=== PATIENT | male | born 1970 | race Caucasian/White ===

== ENCOUNTER 2016-11-05 04:14 | Inpatient (IN) ==
[2016-11-05] MEDS ORDERED: hydrOXYzine pamoate 25 MG CAPSULE PO PRN (04:52)
[2016-11-05] MEDS ORDERED: Ibuprofen 400 MG TABLET PO PRN (04:52)
[2016-11-05] MEDS ORDERED: *HR* LORazepam 2 MG/ML VIAL IM PRN (04:52)
[2016-11-05] MEDS ORDERED: Haloperidol Lactate 5 MG/ML VIAL IM PRN (04:52)
[2016-11-05] MEDS ORDERED: Mag Hydrox/Al Hydrox/Simeth 30 ML UDC PO PRN (04:52)
[2016-11-05] MEDS ORDERED: MOM Conc 10 ML UD.LIQ PO PRN (04:52)
[2016-11-05] MEDS ORDERED: traZODone 50 MG TABLET PO PRN (04:52)
[2016-11-05] MEDS ORDERED: clonazePAM 1 MG TABLET PO SCH (09:00)
--- NOTE | 2016-11-05 09:38 | Psychiatry History & Physical ---
Date of Encounter: 11/06/16 Time of Encounter: 09:31 History of Present Illness Patient Stated Chief Complaint: Suicidal Medicare Admission Attestation: For traditional Medicare patients the provided hospital inpatient services are reasonable and necessary and in the case of services not specified as inpatient -only under 42 CFR 419.22 (n), that they are appropriately provided as inpatient services in accordance 42 CFR 412.3. For Critical [facility] Hospital the patient may reasonably be expected to be discharged or transferred to a hospital within 96 hours after admission to the Critical Access Hospital. Admitted From: Emergency Dept History of Present Illness: Mr. Wahtley is a 46 year old male admitted from the emergency room for suicidal ideation. Records were available to review in the system. History information given by the indicated the patient has been treated for conversion disorder and depression. Also he was diagnosed with parkinsonian and 2015 and was started on treatment. Patient medication were changed recently from Abilify to Wellbutrin and Lexapro to Effexor. While the report patient is having hypersomnia and sleep up to 20 hours a day since August 2016. Also she stated that he had many episodes of unsteadiness and falls. She indicated that his treatment records from hospitals and neurologist can be requested for review. Past Med Surg Social Fam HX - Past Medical History Medical history: GERD, hypertension - Past Psychiatric History Psychiatric history: Reports: depression, previous psychiatric hospitalization Past psychiatric history details: [facility] for psychosis 10 years ago Family psychiatric history: Unknown Family History of Suicide: Unknown - Social History Smoking Status: Never smoker Smokeless Tobacco Status: No Alcohol use: none Drug use: none Medications & Allergies Albuterol Sulfate [Ventolin Hfa] 2 puff IH Q6H PRN 11/05/16 [History] BuPROPion XL (24 HR) [Wellbutrin XL] 150 mg PO DAILY 11/05/16 [History] Carbidopa/Levodopa 25/100 [Sinemet 25/100] 1 tab PO BID 11/05/16 [History] Entacapone [Comtan] 200 mg PO BID 11/05/16 [History] Escitalopram [Lexapro] 20 mg PO DAILY 11/05/16 [History] LORazepam [Ativan] 1 mg PO BID PRN 11/05/16 [History] Metoprolol XL (24 HR) Succ [Toprol XL] 25 mg PO DAILY 11/05/16 [History] Ondansetron HCl [Zofran] 4 mg PO TID PRN 11/05/16 [History] Ranitidine HCl [Acid Optometrist/Practice Owner] 150 mg PO BID 11/05/16 [History] Allergies No Known Allergies Allergy (Verified 11/05/16 04:39) Review of Systems Psychiatric: Reports: depression, suicidal ideation Mental Status Exam Patient orientation: Yes Person, Yes Time, Yes Place Level of alertness: Alert, Sedated Patient appearance: Disheveled, Obese Behavior: calm, cooperative, anxious, guarded, suspicious, withdrawn Psychomotor activity: Slowed Eye contact: Maintains Eye Contact Mood description: Depressed, Anxious Affect description: constricted, flat, dysphoric Speech pattern: Normal rate, Normal rhythm, Normal tone, Slowed, Delayed, Limited Speech volume: Normal Thought process: Linear, Goal Oriented, Thought Blocking Thought content: No Suicidal ideation, No Homicidal ideation, No Overt delusions Perceptual disturbances: Yes Auditory hallucinations, Yes Visual hallucinations Attention span: Unable to Focus Memory description: Grossly Intact Patient reliability: Questionable Historian Intelligence estimate: Average Judgment: Limited Insight: Partial Results - Vital Signs Vital signs: Temp Pulse Resp BP 98.2 F 77 16 139/92 11/05/16 05:01 11/05/16 05:01 11/05/16 05:01 11/05/16 05:01 Assessment and Plan (1) Major depressive disorder with psychotic features Current visit: Yes Status: Acute Plan: Admit inpatient for safety and stabilization, Close observation, Suicide Precautions per unit protocol, Encourage participation in unit milieu, Group Therapy, Monitor sleep, Monitor appetite Additional Plan: Medical records from neurology and primary care. Requested to review. No current records are available in the system. We will discontinue Lexapro and start patient on Effexor XR 75 mg. Walter reported good response to Effexor in the past. Risks, benefits, side effects, alternatives discussed w/pt: Yes Patient agreeable to treatment: Yes Qualifiers: Major depression recurrence: recurrent Active/Remission status: currently active Major depression episode severity: severe Qualified Code(s): F33.3 - Major depressive disorder, recurrent, severe with psychotic symptoms (2) Hallucination, drug-induced Current visit: Yes Status: Acute Plan: Admit inpatient for safety and stabilization, Close observation, Suicide Precautions per unit protocol, Encourage participation in unit milieu, Group Therapy, Monitor sleep, Monitor appetite Risks, benefits, side effects, alternatives discussed w/pt: Yes Patient agreeable to treatment: Yes
[2016-11-05] MEDS: Metoprolol XL (24 HR) Succ 25 MG TAB.ER.24H PO SCH (10:08)
[2016-11-05] MEDS: BuPROPion XL (24 HR) 150 MG TABLET PO SCH (10:08)
[2016-11-05] MEDS: Carbidopa/Levodopa 25/100 TABLET PO SCH ×2 (10:08→21:05)
[2016-11-05] MEDS: Venlafaxine XR (24 HR) 75 MG CAP.ER.24H PO SCH (15:45)
[2016-11-06] MEDS: Metoprolol XL (24 HR) Succ 25 MG TAB.ER.24H PO SCH (08:47)
[2016-11-06] MEDS: BuPROPion XL (24 HR) 150 MG TABLET PO SCH (08:47)
[2016-11-06] MEDS: Carbidopa/Levodopa 25/100 TABLET PO SCH ×2 (08:47→20:31)
[2016-11-06] MEDS: Venlafaxine XR (24 HR) 75 MG CAP.ER.24H PO SCH (08:48)
--- NOTE | 2016-11-06 13:24 | Psychiatry Progress Note ---
Date of Encounter: 11/06/16 Time of Encounter: 13:15 Subjective Interval history: Patient is seen for follow-up. Nursing staff report he is spending most of the time in his room. He reports improved energy and he were to get up in the morning, have breakfast. His affect is brighter and less anxious. He is responding well to medication changes. We are awaiting medical records and neurological records to review. Review of Systems Psychiatric: Reports: depression, anxiety, abnormal sleep pattern, difficulty concentrating Objective: Exam Patient orientation: Yes Person, Yes Time, Yes Place Level of alertness: Alert Patient appearance: Disheveled, Obese Behavior: calm, cooperative, anxious, withdrawn Psychomotor activity: Normal Eye contact: Maintains Eye Contact Mood description: Depressed, Anxious Affect description: constricted Speech pattern: Normal rate, Normal rhythm, Normal tone, Limited Speech volume: Normal Thought process: Linear, Goal Oriented, Thought Blocking Thought content: No Suicidal ideation, No Homicidal ideation, No Overt delusions Perceptual disturbances: Yes Auditory hallucinations, Yes Visual hallucinations Judgment: Limited Insight: Partial Results - Vital Signs Vital Signs: Temp Pulse Resp BP 96.9 F L 83 18 123/88 11/06/16 09:00 11/06/16 09:00 11/06/16 09:00 11/06/16 09:00 Assessment and Plan (1) Major depressive disorder with psychotic features Current visit: Yes Status: Acute Plan: Continue hospitalization, Close observation, Suicide Precautions per unit protocol, Encourage participation in unit milieu, Group Therapy, Monitor sleep, Monitor appetite Risks, benefits, side effects, alternatives discussed w/pt: Yes Patient agreeable to treatment: Yes Qualifiers: Major depression recurrence: recurrent Active/Remission status: currently active Major depression episode severity: severe Qualified Code(s): F33.3 - Major depressive disorder, recurrent, severe with psychotic symptoms (2) Hallucination, drug-induced Current visit: Yes Status: Acute Plan: Continue hospitalization, Close observation, Suicide Precautions per unit protocol, Encourage participation in unit milieu, Group Therapy, Monitor sleep, Monitor appetite Risks, benefits, side effects, alternatives discussed w/pt: Yes Patient agreeable to treatment: Yes Consult Discharge Plan - Plan Referrals: NO,PCP [Primary Care Provider] -
[2016-11-06] MEDS: ARIPiprazole 10 MG TABLET PO SCH (14:20)
[2016-11-06] MEDS: *HR* LORazepam 1 MG TABLET PO PRN (17:14)
[2016-11-07] MEDS: ARIPiprazole 10 MG TABLET PO SCH (08:35)
[2016-11-07] MEDS: Venlafaxine XR (24 HR) 75 MG CAP.ER.24H PO SCH (08:35)
[2016-11-07] MEDS: Metoprolol XL (24 HR) Succ 25 MG TAB.ER.24H PO SCH (08:35)
[2016-11-07] MEDS: BuPROPion XL (24 HR) 150 MG TABLET PO SCH (08:35)
[2016-11-07] MEDS: Carbidopa/Levodopa 25/100 TABLET PO SCH ×2 (08:35→21:08)
--- NOTE | 2016-11-07 11:14 | Psychiatry Progress Note ---
Date of Encounter: 11/08/16 Time of Encounter: 11:11 Subjective Interval history: Pt seen and evaluated. Pt reports he is feeling "anxious" he reports at night he usually see's people and sometimes during the day. He reports sometimes he knows who they are and sometimes he doesnt. He reports "peter luciano drives me crazy and she mrdered her other and father with a hatchet". He reports he feels his anxiety is coming from these visual hallucination. He reports he lives at home wiht his and 2 teenage sons. he reprots his knows. Review of Systems Psychiatric: Reports: depression, anxiety, abnormal sleep pattern, difficulty concentrating Objective: Exam Patient orientation: Yes Person, Yes Time, Yes Place Level of alertness: Alert Patient appearance: Disheveled, Obese Behavior: calm, cooperative, anxious, withdrawn Psychomotor activity: Normal Eye contact: Maintains Eye Contact Mood description: Depressed, Anxious Affect description: constricted Speech pattern: Normal rate, Normal rhythm, Normal tone, Limited Speech volume: Normal Thought process: Linear, Goal Oriented, Thought Blocking Thought content: No Suicidal ideation, No Homicidal ideation, No Overt delusions Perceptual disturbances: Yes Auditory hallucinations, Yes Visual hallucinations Judgment: Limited Insight: Partial Results - Vital Signs Vital Signs: Temp Pulse Resp BP 99.3 F 93 14 135/96 11/06/16 21:00 11/06/16 21:00 11/06/16 21:00 11/06/16 21:00 Assessment and Plan (1) Major depressive disorder with psychotic features Current visit: Yes Status: Acute Plan: Continue hospitalization, Close observation, Suicide Precautions per unit protocol, Encourage participation in unit milieu, Group Therapy, Monitor sleep, Monitor appetite Additional Plan: 11/07: dc abilify due to being ineffective and start seroquel 12.5/12.5. 50 mg qhs Medical records from neurology and primary care. Requested to review. No current records are available in the system. We will discontinue Lexapro and start patient on Effexor XR 75 mg. Walter reported good response to Effexor in the past. Risks, benefits, side effects, alternatives discussed w/pt: Yes Patient agreeable to treatment: Yes Qualifiers: Major depression recurrence: recurrent Active/Remission status: currently active Major depression episode severity: severe Qualified Code(s): F33.3 - Major depressive disorder, recurrent, severe with psychotic symptoms Consult Discharge Plan - Plan Additional Instructions: . Referrals: [facility] [Outside] - 11/18/16 12:00 pm (The above appointment is with Selena Murcia.) [facility] [Outside] - 11/14/16 8:30 am (The above appointment is with Diamond Talbot, psychiatric prescriber.)
[2016-11-08] MEDS: Metoprolol XL (24 HR) Succ 25 MG TAB.ER.24H PO SCH (08:31)
[2016-11-08] MEDS: Carbidopa/Levodopa 25/100 TABLET PO SCH ×2 (08:31→21:15)
[2016-11-08] MEDS: Venlafaxine XR (24 HR) 75 MG CAP.ER.24H PO SCH (08:31)
[2016-11-08] MEDS: BuPROPion XL (24 HR) 150 MG TABLET PO SCH (08:31)
--- NOTE | 2016-11-08 09:54 | Psychiatry Progress Note ---
Date of Encounter: 11/08/16 Time of Encounter: 09:37 Subjective Interval history: Pt seen and evaluated. Pt reports that he feels the VH are getting better but reprots he did have some last night. Nurse spoke wiht about seroquel being started for VH. staff noticed that pt had told them that he didnt have VH last night. Pt has been med compliant. No issues or side effects wiht mediation. discussed with pt increasing seroquel at night to help wiht sleep and any remaining VH pt agreeable to this. No prns required for agitation/aggression. Review of Systems Psychiatric: Reports: depression, anxiety, visual hallucinations, difficulty concentrating Objective: Exam Patient orientation: Yes Person, Yes Time, Yes Place Level of alertness: Alert Patient appearance: Disheveled, Obese Behavior: calm, cooperative, anxious, withdrawn Psychomotor activity: Normal Eye contact: Maintains Eye Contact Mood description: Depressed, Anxious Affect description: constricted Speech pattern: Normal rate, Normal rhythm, Normal tone, Limited Speech volume: Normal Thought process: Linear, Goal Oriented, Thought Blocking Thought content: No Suicidal ideation, No Homicidal ideation, No Overt delusions Perceptual disturbances: Yes Auditory hallucinations, Yes Visual hallucinations Judgment: Limited Insight: Partial Results - Vital Signs Vital Signs: Temp Pulse Resp BP 97 F L 94 18 134/89 11/08/16 09:00 11/08/16 09:00 11/08/16 09:00 11/08/16 09:00 Assessment and Plan (1) Major depressive disorder with psychotic features Current visit: Yes Status: Acute Plan: Continue hospitalization, Close observation, Suicide Precautions per unit protocol, Encourage participation in unit milieu, Group Therapy, Monitor sleep, Monitor appetite Additional Plan: 11/08: increase seroqule 100 mg qha for ongoign vh and insomnia 11/07: dc abilify due to being ineffective and start seroquel 12.5/12.5. 50 mg qhs Medical records from neurology and primary care. Requested to review. No current records are available in the system. We will discontinue Lexapro and start patient on Effexor XR 75 mg. Walter reported good response to Effexor in the past. Risks, benefits, side effects, alternatives discussed w/pt: Yes Patient agreeable to treatment: Yes Qualifiers: Major depression recurrence: recurrent Active/Remission status: currently active Major depression episode severity: severe Qualified Code(s): F33.3 - Major depressive disorder, recurrent, severe with psychotic symptoms Consult Discharge Plan - Plan Additional Instructions: . Referrals: [facility] [Outside] - 11/18/16 12:00 pm (The above appointment is with Selena Murcia.) [facility] [Outside] - 11/14/16 8:30 am (The above appointment is with Diamond Talbot, psychiatric prescriber.)
[2016-11-08] MEDS: *HR* LORazepam 1 MG TABLET PO PRN (20:00)
[2016-11-09] MEDS: Venlafaxine XR (24 HR) 75 MG CAP.ER.24H PO SCH (08:34)
[2016-11-09] MEDS: Carbidopa/Levodopa 25/100 TABLET PO SCH ×2 (08:34→20:50)
[2016-11-09] MEDS: Metoprolol XL (24 HR) Succ 25 MG TAB.ER.24H PO SCH (08:34)
[2016-11-09] MEDS: *HR* LORazepam 0.5 MG TABLET PO SCH ×3 (08:35→20:50)
--- NOTE | 2016-11-09 09:43 | Psychiatry Progress Note ---
Date of Encounter: 11/09/16 Time of Encounter: 09:40 Subjective Interval history: The patient seen and evaluated this morning. Patient reports that this morning he has had no visual hallucinations. He does report that he had difficulty sleeping at night. Patient did have a fall last night because he said that he had a visual hallucination of busy. Patient reports that he is feeling like the medication is working but just needs a few more days to see if it helps with the visual hallucinations. Patient did inquire about a stimulant to help with his lethargy secondary to his Parkinson's explained to patient that this would be discussed once his visual hallucinations or psychosis was resolved. Patient was agreeable to this. Patient has been med compliant. Patient's appetite has been good. Patient has been going to groups and interacting with peers while on the unit. Patient denied SI/HI. Review of Systems Psychiatric: Reports: depression, abnormal sleep pattern, visual hallucinations , difficulty concentrating. Denies: suicidal ideation, homicidal ideation, auditory hallucinations Objective: Exam Patient orientation: Yes Person, Yes Time, Yes Place Level of alertness: Alert Patient appearance: Disheveled, Obese Behavior: calm, cooperative, anxious, withdrawn Psychomotor activity: Normal Eye contact: Maintains Eye Contact Mood description: Depressed, Anxious Affect description: constricted Speech pattern: Normal rate, Normal rhythm, Normal tone, Limited Speech volume: Normal Thought process: Linear, Goal Oriented, Thought Blocking Thought content: No Suicidal ideation, No Homicidal ideation, No Overt delusions Perceptual disturbances: Yes Auditory hallucinations, Yes Visual hallucinations Judgment: Limited Insight: Partial Results - Vital Signs Vital Signs: Temp Pulse Resp BP 97.4 F L 90 18 138/91 11/09/16 08:32 11/09/16 08:32 11/09/16 08:32 11/09/16 08:32 - Impressions ITS Impressions Hip X-Ray 11/08/16 20:03 IMPRESSION: No acute osseous abnormality. D/ / Prakash Ramirez MD / Prakash Ramirez MD Interpreting Provider: Prakash Ramirez MD Assessment and Plan (1) Major depressive disorder with psychotic features Current visit: Yes Status: Acute Plan: Continue hospitalization, Close observation, Suicide Precautions per unit protocol, Encourage participation in unit milieu, Group Therapy, Monitor sleep, Monitor appetite Additional Plan: 11/09: increase seroquel at qhs, start restoril 15 mg qhs for sleep, continue to monitor. 11/08: increase seroqule 100 mg qha for ongoign vh and insomnia 11/07: dc abilify due to being ineffective and start seroquel 12.5/12.5. 50 mg qhs Medical records from neurology and primary care. Requested to review. No current records are available in the system. We will discontinue Lexapro and start patient on Effexor XR 75 mg. Walter reported good response to Effexor in the past. Risks, benefits, side effects, alternatives discussed w/pt: Yes Patient agreeable to treatment: Yes Qualifiers: Major depression recurrence: recurrent Active/Remission status: currently active Major depression episode severity: severe Qualified Code(s): F33.3 - Major depressive disorder, recurrent, severe with psychotic symptoms Consult Discharge Plan - Plan Additional Instructions: . Referrals: [facility] [Outside] - 11/18/16 12:00 pm (The above appointment is with Selena Murcia.) [facility] [Outside] - 11/14/16 8:30 am (The above appointment is with Diamond Talbot, psychiatric prescriber.)
[2016-11-09] MEDS: Temazepam 15 MG CAPSULE PO SCH (20:50)
[2016-11-09] MEDS ORDERED: traZODone 50 MG TABLET PO SCH (21:00)
[2016-11-10] MEDS: Venlafaxine XR (24 HR) 75 MG CAP.ER.24H PO SCH (08:33)
[2016-11-10] MEDS: Metoprolol XL (24 HR) Succ 25 MG TAB.ER.24H PO SCH (08:33)
[2016-11-10] MEDS: Carbidopa/Levodopa 25/100 TABLET PO SCH ×2 (08:34→20:24)
[2016-11-10] MEDS: *HR* LORazepam 0.5 MG TABLET PO SCH ×3 (08:34→20:24)
--- NOTE | 2016-11-10 10:50 | Psychiatry Progress Note ---
Date of Encounter: 11/10/16 Time of Encounter: 10:47 Subjective Interval history: Patient seen and evaluated this morning. Patient reports that his mood is "tired". Patient reports that he had a good day yesterday he reports having mild visual hallucinations but then reports that he does not remember. Per staff patient denied visual hallucinations when asked yesterday and patient did not have any issues at night while being asleep. Patient reports no current side effects with medication. Patient has been going to groups and activities. Patient's appetite and sleep is fair. No when necessary's were required for agitation or aggression. Patient reports that he understands we cannot start a stimulant at this time due to a possibly making visual hallucinations worse. Discussed and encouraged patient to speak with his about getting his CPAP machine due to this being important for his sleep and nightmares and in order to get better. Patient was agreeable to call his to tell her to bring this in. Pt contiinues to be a poor hsotrian staff reports pt slept 7 hours but pt is vague about if he slept or not Review of Systems Psychiatric: Reports: depression, abnormal sleep pattern, visual hallucinations , difficulty concentrating. Denies: suicidal ideation, homicidal ideation, auditory hallucinations Objective: Exam Patient orientation: Yes Person, Yes Time, Yes Place Level of alertness: Alert Patient appearance: Disheveled, Obese Behavior: calm, cooperative, anxious, withdrawn Psychomotor activity: Normal Eye contact: Maintains Eye Contact Mood description: Depressed, Anxious Affect description: constricted Speech pattern: Normal rate, Normal rhythm, Normal tone, Limited Speech volume: Normal Thought process: Linear, Goal Oriented, Thought Blocking Thought content: No Suicidal ideation, No Homicidal ideation, No Overt delusions Perceptual disturbances: Yes Auditory hallucinations, Yes Visual hallucinations Judgment: Limited Insight: Partial Results - Vital Signs Vital Signs: Temp Pulse Resp BP 96.7 F L 93 18 137/97 11/10/16 09:00 11/10/16 09:00 11/10/16 09:00 11/10/16 09:00 - Impressions ITS Impressions Hip X-Ray 11/08/16 20:03 IMPRESSION: No acute osseous abnormality. D/ / Prakash Ramirez MD / Prakash Ramirez MD Interpreting Provider: Prakash Ramirez MD Assessment and Plan (1) Major depressive disorder with psychotic features Current visit: Yes Status: Acute Plan: Continue hospitalization, Close observation, Suicide Precautions per unit protocol, Encourage participation in unit milieu, Group Therapy, Monitor sleep, Monitor appetite Additional Plan: 11/10: continue meds and supportive care 11/09: increase seroquel at qhs, start restoril 15 mg qhs for sleep, continue to monitor. 11/08: increase seroqule 100 mg qha for ongoign vh and insomnia 11/07: dc abilify due to being ineffective and start seroquel 12.5/12.5. 50 mg qhs Medical records from neurology and primary care. Requested to review. No current records are available in the system. We will discontinue Lexapro and start patient on Effexor XR 75 mg. Walter reported good response to Effexor in the past. Risks, benefits, side effects, alternatives discussed w/pt: Yes Patient agreeable to treatment: Yes Qualifiers: Major depression recurrence: recurrent Active/Remission status: currently active Major depression episode severity: severe Qualified Code(s): F33.3 - Major depressive disorder, recurrent, severe with psychotic symptoms Consult Discharge Plan - Plan Additional Instructions: . Referrals: [facility] [Outside] - 11/18/16 12:00 pm (The above appointment is with Selena Murcia.) [facility] [Outside] - 11/14/16 8:30 am (The above appointment is with Diamond Talbot, psychiatric prescriber.)
[2016-11-10] MEDS: Temazepam 15 MG CAPSULE PO SCH (20:24)
[2016-11-10] MEDS: traZODone 50 MG TABLET PO PRN (21:49)
[2016-11-11] MEDS: Metoprolol XL (24 HR) Succ 25 MG TAB.ER.24H PO SCH (08:24)
[2016-11-11] MEDS: Carbidopa/Levodopa 25/100 TABLET PO SCH ×2 (08:24→21:42)
[2016-11-11] MEDS: *HR* LORazepam 0.5 MG TABLET PO SCH ×3 (08:47→21:42)
[2016-11-11] MEDS: Venlafaxine XR (24 HR) 75 MG CAP.ER.24H PO SCH (08:47)
--- NOTE | 2016-11-11 10:04 | Psychiatry Progress Note ---
Date of Encounter: 11/11/16 Time of Encounter: 10:01 Subjective Interval history: Patient seen and evaluated this morning. Patient reports that he has been sleeping better. Patient reports that when he is in groups he feels that he is "thinking clearer" patient understands that at times he might continue to have this chronic delusion and he reports that he is feeling more comfortable with it and using his coping skills whenever he does see "Betty Mccune". Patient has been attending activities and groups and is participating in the milieu. Appetite fair sleep good patient did not require any when necessary's for agitation or aggression. Patient's still has not provided patient CPAP machine. Discussed with patient that if he did want to get on a stimulant that is something he needs to speak with his primary care provider with due to his sleep apnea and a follow-up with his sleep apnea machine. Patient was agreeable to this patient did report that Wellbutrin was not helping much with his attention and concentration. The patient reports that he feels like he is doing better now but feels that he is not back to his baseline as much as he would like to. We reported that we would discuss and see how he was feeling after the weekend for possible discharge on Monday and patient was agreeable to this. Review of Systems Psychiatric: Reports: depression, abnormal sleep pattern, difficulty concentrating. Denies: suicidal ideation, homicidal ideation, auditory hallucinations Objective: Exam Patient orientation: Yes Person, Yes Time, Yes Place Level of alertness: Alert Patient appearance: Disheveled, Obese Behavior: calm, cooperative, anxious, withdrawn Psychomotor activity: Normal Eye contact: Maintains Eye Contact Mood description: Euthymic/stable Affect description: congruent with mood Speech pattern: Normal rate, Normal rhythm, Normal tone, Limited Speech volume: Normal Thought process: Linear, Goal Oriented, Thought Blocking Thought content: No Suicidal ideation, No Homicidal ideation, No Overt delusions Perceptual disturbances: Yes Auditory hallucinations, Yes Visual hallucinations Judgment: Limited Insight: Partial Results - Vital Signs Vital Signs: Temp Pulse Resp BP 98.2 F 99 18 131/97 11/11/16 08:40 11/11/16 08:40 11/11/16 08:40 11/11/16 08:40 - Impressions ITS Impressions Hip X-Ray 11/08/16 20:03 IMPRESSION: No acute osseous abnormality. D/ / Prakash Ramirez MD / Prakash Ramirez MD Interpreting Provider: Prakash Ramirez MD Assessment and Plan (1) Major depressive disorder with psychotic features Current visit: Yes Status: Acute Plan: Continue hospitalization, Close observation, Suicide Precautions per unit protocol, Encourage participation in unit milieu, Group Therapy, Monitor sleep, Monitor appetite Additional Plan: 11/11: continue meds and supportive care. encouraged to bring cpap machine in again 11/10: continue meds and supportive care 11/09: increase seroquel at qhs, start restoril 15 mg qhs for sleep, continue to monitor. 11/08: increase seroqule 100 mg qha for ongoign vh and insomnia 11/07: dc abilify due to being ineffective and start seroquel 12.5/12.5. 50 mg qhs Medical records from neurology and primary care. Requested to review. No current records are available in the system. We will discontinue Lexapro and start patient on Effexor XR 75 mg. Walter reported good response to Effexor in the past. Risks, benefits, side effects, alternatives discussed w/pt: Yes Patient agreeable to treatment: Yes Qualifiers: Major depression recurrence: recurrent Active/Remission status: currently active Major depression episode severity: severe Qualified Code(s): F33.3 - Major depressive disorder, recurrent, severe with psychotic symptoms Consult Discharge Plan - Plan Additional Instructions: . Referrals: [facility] [Outside] - 11/18/16 12:00 pm (The above appointment is with Selena Murcia.) [facility] [Outside] - 11/18/16 3:45 pm (The above appointment is with Diamond Talbot, psychiatric prescriber.)
[2016-11-11] MEDS: traZODone 50 MG TABLET PO PRN (21:42)
[2016-11-11] MEDS: Temazepam 15 MG CAPSULE PO SCH (21:42)
[2016-11-12] MEDS: Metoprolol XL (24 HR) Succ 25 MG TAB.ER.24H PO SCH (08:40)
[2016-11-12] MEDS: Carbidopa/Levodopa 25/100 TABLET PO SCH ×2 (08:40→20:41)
[2016-11-12] MEDS: Venlafaxine XR (24 HR) 75 MG CAP.ER.24H PO SCH (08:41)
[2016-11-12] MEDS: *HR* LORazepam 0.5 MG TABLET PO SCH ×3 (08:41→20:41)
--- NOTE | 2016-11-12 11:35 | Psychiatry Progress Note ---
Date of Encounter: 11/12/16 Time of Encounter: 11:33 Subjective Interval history: Patient seen and evaluated this morning. Patient reports that he did not have any visual hallucinations yesterday. Patient's did bring in his CPAP machine which he reports helped him sleep. Patient reports some mild anxiety but reported symptoms have overall improved since admission. Patient did not require any when necessary medications for agitation and aggression. Patient has been medication compliant. Patient slept well. Patient did ask about a stimulant for his lethargy once again discussed with patient this is something he would have to follow-up with his primary care physician. Patient was agreeable to this. Review of Systems Psychiatric: Reports: depression, abnormal sleep pattern, difficulty concentrating. Denies: suicidal ideation, homicidal ideation, auditory hallucinations Objective: Exam Patient orientation: Yes Person, Yes Time, Yes Place Level of alertness: Alert Patient appearance: Disheveled, Obese Behavior: calm, cooperative Psychomotor activity: Normal Eye contact: Maintains Eye Contact Mood description: Euthymic/stable Affect description: congruent with mood Speech pattern: Normal rate, Normal rhythm, Normal tone, Limited Speech volume: Normal Thought process: Linear, Goal Oriented Thought content: No Suicidal ideation, No Homicidal ideation, No Overt delusions Perceptual disturbances: No Auditory hallucinations, No Visual hallucinations Judgment: Limited Insight: Partial Results - Vital Signs Vital Signs: Temp Pulse Resp BP 96.6 F L 98 16 120/87 11/12/16 09:00 11/12/16 09:00 11/12/16 09:00 11/12/16 09:00 - Impressions ITS Impressions Hip X-Ray 11/08/16 20:03 IMPRESSION: No acute osseous abnormality. D/ / Prakash Ramirez MD / Prakash Ramirez MD Interpreting Provider: Prakash Ramirez MD Assessment and Plan (1) Major depressive disorder with psychotic features Current visit: Yes Status: Acute Plan: Continue hospitalization, Close observation, Suicide Precautions per unit protocol, Encourage participation in unit milieu, Group Therapy, Monitor sleep, Monitor appetite Additional Plan: 11/12: continue meds and supportive care 11/11: continue meds and supportive care. encouraged to bring cpap machine in again 11/10: continue meds and supportive care 11/09: increase seroquel at qhs, start restoril 15 mg qhs for sleep, continue to monitor. 11/08: increase seroqule 100 mg qha for ongoign vh and insomnia 11/07: dc abilify due to being ineffective and start seroquel 12.5/12.5. 50 mg qhs Medical records from neurology and primary care. Requested to review. No current records are available in the system. We will discontinue Lexapro and start patient on Effexor XR 75 mg. Walter reported good response to Effexor in the past. Risks, benefits, side effects, alternatives discussed w/pt: Yes Patient agreeable to treatment: Yes Qualifiers: Major depression recurrence: recurrent Active/Remission status: currently active Major depression episode severity: severe Qualified Code(s): F33.3 - Major depressive disorder, recurrent, severe with psychotic symptoms Consult Discharge Plan - Plan Additional Instructions: . Referrals: [facility] [Outside] - 11/18/16 12:00 pm (The above appointment is with Selena Murcia.) [facility] [Outside] - 11/18/16 3:45 pm (The above appointment is with Diamond Talbot, psychiatric prescriber.)
[2016-11-12] MEDS: Temazepam 15 MG CAPSULE PO SCH (20:41)
[2016-11-12] MEDS: traZODone 50 MG TABLET PO PRN (20:41)
[2016-11-13] MEDS: *HR* LORazepam 0.5 MG TABLET PO SCH ×3 (08:54→20:15)
[2016-11-13] MEDS: Venlafaxine XR (24 HR) 75 MG CAP.ER.24H PO SCH (08:55)
[2016-11-13] MEDS: Carbidopa/Levodopa 25/100 TABLET PO SCH ×2 (08:55→20:14)
[2016-11-13] MEDS: Metoprolol XL (24 HR) Succ 25 MG TAB.ER.24H PO SCH (08:55)
--- NOTE | 2016-11-13 09:08 | Psychiatry Progress Note ---
Date of Encounter: 11/13/16 Time of Encounter: 09:06 Subjective Interval history: Patient seen and evaluated this morning. Patient reports that he had some restlessness while he was time to go to sleep. Reports that it was not anything that was disturbing him. Patient denied to this provider any visual hallucinations. Patient denied SI or HI. Patient has been medication compliant. Patient has been attending groups and participating in the common milieu and socializing with his peers. Patient reports that his came to visit and give the CPAP machine and felt like he was doing better. Review of Systems Constitutional: Denies: fever, chills, weakness, weight change, night sweats Eyes: Denies: eye pain, eye discharge, vision change Ears, Nose, Throat: Denies: ear pain, throat pain, dental pain, hearing loss, epistaxis, congestion, dysphagia Psychiatric: Reports: depression, difficulty concentrating. Denies: suicidal ideation, homicidal ideation, auditory hallucinations, visual hallucinations, hopelessness, irritability, panic attacks Objective: Exam Patient orientation: Yes Person, Yes Time, Yes Place Level of alertness: Alert Patient appearance: Disheveled, Obese Behavior: calm, cooperative Psychomotor activity: Normal Eye contact: Maintains Eye Contact Mood description: Euthymic/stable Affect description: congruent with mood Speech pattern: Normal rate, Normal rhythm, Normal tone, Limited Speech volume: Normal Thought process: Linear, Goal Oriented Thought content: Yes Intact, No Suicidal ideation, No Homicidal ideation, No Overt delusions Perceptual disturbances: No Auditory hallucinations, No Visual hallucinations Judgment: Limited Insight: Partial Results - Vital Signs Vital Signs: Temp Pulse Resp BP 98.0 F 85 16 126/92 11/12/16 21:00 11/12/16 21:45 11/12/16 21:45 11/12/16 21:45 - Impressions ITS Impressions Hip X-Ray 11/08/16 20:03 IMPRESSION: No acute osseous abnormality. D/ / Prakash Ramirez MD / Prakash Ramirez MD Interpreting Provider: Prakash Ramirez MD Assessment and Plan (1) Major depressive disorder with psychotic features Current visit: Yes Status: Acute Plan: Continue hospitalization, Close observation, Suicide Precautions per unit protocol, Encourage participation in unit milieu, Group Therapy, Monitor sleep, Monitor appetite Additional Plan: 11/13: continue meds and supportive care 11/12: continue meds and supportive care 11/11: continue meds and supportive care. encouraged to bring cpap machine in again 11/10: continue meds and supportive care 11/09: increase seroquel at qhs, start restoril 15 mg qhs for sleep, continue to monitor. 11/08: increase seroqule 100 mg qha for ongoign vh and insomnia 11/07: dc abilify due to being ineffective and start seroquel 12.5/12.5. 50 mg qhs Medical records from neurology and primary care. Requested to review. No current records are available in the system. We will discontinue Lexapro and start patient on Effexor XR 75 mg. Walter reported good response to Effexor in the past. Risks, benefits, side effects, alternatives discussed w/pt: Yes Patient agreeable to treatment: Yes Qualifiers: Major depression recurrence: recurrent Active/Remission status: currently active Major depression episode severity: severe Qualified Code(s): F33.3 - Major depressive disorder, recurrent, severe with psychotic symptoms Consult Discharge Plan - Plan Additional Instructions: . Referrals: [facility] [Outside] - 11/18/16 12:00 pm (The above appointment is with Selena Murcia.) [facility] [Outside] - 11/18/16 3:45 pm (The above appointment is with Diamond Talbot, psychiatric prescriber.)
[2016-11-13] MEDS: traZODone 50 MG TABLET PO PRN (20:14)
[2016-11-13] MEDS: Temazepam 15 MG CAPSULE PO SCH (20:14)
[2016-11-14] MEDS: Venlafaxine XR (24 HR) 75 MG CAP.ER.24H PO SCH (08:32)
[2016-11-14] MEDS: Metoprolol XL (24 HR) Succ 25 MG TAB.ER.24H PO SCH (08:32)
[2016-11-14 08:33] VITALS: BP 132/91
[2016-11-14] MEDS: *HR* LORazepam 0.5 MG TABLET PO SCH ×2 (08:33→14:29)
[2016-11-14] MEDS: Carbidopa/Levodopa 25/100 TABLET PO SCH (08:33)
--- NOTE | 2016-11-14 12:33 | Psychiatry Progress Note ---
Date of Encounter: 11/14/16 Time of Encounter: 12:28 Subjective Interval history: Patient is seen for follow-up. She is self report patient is compliant with medication, participated in groups, his sleep schedule is improved and energy level is better. His discharge plans are completed by the psych social worker. He denies any suicidal or homicidal ideation. He reports occasional visual hallucinations most likely side effects of Sinemet. Review of Systems Psychiatric: Reports: depression, difficulty concentrating. Denies: suicidal ideation, homicidal ideation, auditory hallucinations, visual hallucinations, hopelessness, irritability, panic attacks Objective: Exam Patient orientation: Yes Person, Yes Time, Yes Place Level of alertness: Alert Patient appearance: Unkempt, Obese Behavior: calm, cooperative Psychomotor activity: Normal Eye contact: Maintains Eye Contact Mood description: Euthymic/stable Affect description: congruent with mood Speech pattern: Normal rate, Normal rhythm, Normal tone, Limited Speech volume: Normal Thought process: Linear, Goal Oriented Thought content: Yes Intact, No Suicidal ideation, No Homicidal ideation, No Overt delusions Perceptual disturbances: No Auditory hallucinations, No Visual hallucinations Judgment: Limited Insight: Partial Results - Vital Signs Vital Signs: Temp Pulse Resp BP 97.2 F L 99 18 132/91 11/14/16 08:32 11/14/16 08:32 11/14/16 08:32 11/14/16 08:32 - Impressions ITS Impressions Hip X-Ray 11/08/16 20:03 IMPRESSION: No acute osseous abnormality. D/ / Prakash Ramirez MD / Prakash Ramirez MD Interpreting Provider: Prakash Ramirez MD Assessment and Plan (1) Major depressive disorder with psychotic features Current visit: Yes Status: Acute Plan: Continue hospitalization, Close observation, Suicide Precautions per unit protocol, Encourage participation in unit milieu, Group Therapy, Monitor sleep, Monitor appetite Risks, benefits, side effects, alternatives discussed w/pt: Yes Patient agreeable to treatment: Yes Qualifiers: Major depression recurrence: recurrent Active/Remission status: currently active Major depression episode severity: severe Qualified Code(s): F33.3 - Major depressive disorder, recurrent, severe with psychotic symptoms (2) Hallucination, drug-induced Current visit: Yes Status: Acute Plan: Continue hospitalization, Close observation, Suicide Precautions per unit protocol, Encourage participation in unit milieu, Group Therapy, Monitor sleep, Monitor appetite Risks, benefits, side effects, alternatives discussed w/pt: Yes Patient agreeable to treatment: Yes Consult Discharge Plan - Plan Additional Instructions: . Referrals: [facility] [Outside] - 11/18/16 12:00 pm (The above appointment is with Selena Murcia.) [facility] [Outside] - 11/18/16 3:45 pm (The above appointment is with Diamond Talbot, psychiatric prescriber.)
--- NOTE | 2016-11-14 13:50 | Discharge Summary ---
Date of Encounter: 11/14/16 Time of Encounter: 13:43 Diagnosis - Discharge Diagnosis (1) Major depressive disorder with psychotic features Status: Acute Qualifiers: Major depression recurrence: recurrent Active/Remission status: currently active Major depression episode severity: severe Qualified Code(s): F33.3 - Major depressive disorder, recurrent, severe with psychotic symptoms (2) Hallucination, drug-induced Status: Acute Medications - Discharge Medications Prescriptions: Quetiapine Fumarate [Seroquel] 200 mg PO HS #60 tablet Quetiapine Fumarate [Seroquel] 50 mg PO 1200 #30 tablet Quetiapine Fumarate [Seroquel] 50 mg PO DAILY #30 tablet Venlafaxine XR (24 HR) [Effexor XR] 75 mg PO DAILY #30 cap.er.24h Albuterol Sulfate [Ventolin Hfa] 2 puff IH Q6H PRN 11/05/16 [History] Carbidopa/Levodopa 25/100 [Sinemet 25/100] 1 tab PO BID 11/05/16 [History] Entacapone [Comtan] 200 mg PO BID 11/05/16 [History] LORazepam [Ativan] 1 mg PO BID PRN 11/05/16 [History] Metoprolol XL (24 HR) Succ [Toprol Xl] 25 mg PO DAILY 11/05/16 [History] Ondansetron HCl [Zofran] 4 mg PO TID PRN 11/05/16 [History] Ranitidine HCl [Acid Operations Manager] 150 mg PO BID 11/05/16 [History] Quetiapine Fumarate [Seroquel] 50 mg PO 1200 #30 tablet 11/14/16 [Rx] Quetiapine Fumarate [Seroquel] 50 mg PO DAILY #30 tablet 11/14/16 [Rx] Quetiapine Fumarate [Seroquel] 200 mg PO HS #60 tablet 11/14/16 [Rx] Venlafaxine XR (24 HR) [Effexor XR] 75 mg PO DAILY #30 cap.er.24h 11/14/16 [Rx] Allergies No Known Allergies Allergy (Verified 11/05/16 04:39) Results Procedures and tests throughout hospitalization: Completed Imaging Orders Category Date Time Status XR hip complete LT [XR] Stat Exams 11/08/16 20:03 Completed Provider Date of admission: 11/05/16 04:14 Primary care physician: PCP NO Consults: 11/05/16 04:55 Consult to Pastoral Services [CONS] Routine Comment: Discharging clinician: Lloyd Garcia Assessment and Plan - Patient/Caregiver Discharge Instructions Activity: resume usual activities as tolerated Diet: regular diet Additional Instructions: . - Follow up Plan Follow up with: [facility] [Outside] - 11/18/16 12:00 pm (The above appointment is with Selena Murcia.) [facility] [Outside] - 11/18/16 3:45 pm (The above appointment is with Diamond Talbot, psychiatric prescriber.) Functional capacity at discharge: independent ambulation Overall status at discharge: Stable Disposition: Home, Self-Care Hospital Course Hospital course: Mr. Whatley is a 46 year old male admitted from the emergency room for evaluation of hallucinations or visual hallucination and suicidal ideation. For details of admission please see H&P. On the unit medication were reviewed and adjusted. We discontinued Lexapro and Wellbutrin patient was started on Effexor and Seroquel. Patient responded well to medication changes, his sleep improved and he became more alert also he reported improved energy and better mood. He participated in activities and groups. His follow-up plans were completed by the outreach and education social worker. Prior to discharge patient was medically stable denies suicidal or homicidal ideation and he tolerated medication without side effects and was looking forward to going home and stay occupied and active. - Time Spent with Patient Total time spent providing and/or coordinating discharge services: Greater than 30 minutes Quality - Multiple Antipsychotics Patient discharged on 2 or more antipsychotic medications: No Procedures - Procedures Procedures: Medication Management, Crisis Stabilization, Supportive Therapy, Group Therapy, Psychoeducational Therapy Mental Status Exam - Mental Status Exam Patient orientation: Yes Person, Yes Time, Yes Place Level of alertness: Alert Patient appearance: Unkempt, Obese Behavior: calm, cooperative Psychomotor activity: Normal Eye contact: Maintains Eye Contact Mood description: Euthymic/stable Affect description: congruent with mood Speech pattern: Normal rate, Normal rhythm, Normal tone, Limited Speech Volume: Normal Thought process: Linear, Goal Oriented Thought Content: Yes Intact, No Suicidal ideation, No Homicidal ideation, No Overt delusions Perceptual Disturbances: No Auditory hallucinations, Yes Visual hallucinations Judgment: Limited Insight: Partial
== END 2016-11-14 15:25 | disposition home or self-care (01) | DRG 751 ==
LOC: 1ANU 04:14 → SUATTDRO 04:14
PROVIDERS: ADMIT Psychiatry & Neurology Psychiatry; ATTEND Psychiatry & Neurology Psychiatry